=== PATIENT | male | born 1940 | race Asian ===

== ENCOUNTER 2023-04-09 01:03 | Inpatient (IN) | payer MEDICARE ==
[~2023-04-09] VITALS: Ht 165.1 cm; Wt 59.9 kg
[2023-04-09] MEDS ORDERED: ONDANSETRON HCL/PF 4 MG/2 ML VIAL ONE (01:25)
[2023-04-09] MEDS ORDERED: IV NS 0.9% 500 ML BAG IV ONE (01:30)
[2023-04-09] MEDS ORDERED: ONDANSETRON HCL/PF 4 MG/2 ML VIAL IVP ONE (01:30)
[2023-04-09 01:46] LABS: BASOPHILS % (AUTO) 0.3 % (0.0-2.0); EOSINOPHILS % (AUTO) 0.6 % (0.0-6.0); HEMATOCRIT 34 % (39-51); HEMOGLOBIN 11.9 g/dL (13.5-17.5); LYMPHOCYTES # (AUTO) 0.5 K/uL (0.8-4.8); LYMPHOCYTES % (AUTO) 7.7 % (20.0-44.0); MEAN CORPUSCULAR HEMOGLOBIN 30 PG (26.0-33.0); MEAN CORPUSCULAR HGB CONC 35 g/dl (31.0-36.0); MEAN CORPUSCULAR VOLUME 87 fL (80-96); MONOCYTES # (AUTO) 0.2 K/uL (0.1-1.30); MONOCYTES % (AUTO) 3.6 % (2.0-12.0); NEUTROPHILS # (AUTO) 5.7 K/uL (1.8-8.9); NEUTROPHILS % (AUTO) 87.8 % (43.0-81.0); PLATELET COUNT (AUTO) 211 K/uL (150-450); RED BLOOD CELL COUNT(AUTO) 3.97 MIL/uL (4.5-6.0); RED CELL DISTRIBUTION WIDTH 12.8 % (11.5-15.0); WHITE BLOOD COUNT (AUTO) 6.5 K/uL (4.3-11.0)
[2023-04-09 01:54] LABS: ALANINE AMINOTRANSFERASE 33 U/L (12-78); ALBUMIN 3.5 g/dL (3.4-5.0); ALKALINE PHOSPHATASE 107 U/L (46-116); ASPARTATE AMINOTRANSFERASE 31 U/L (15-37); BILIRUBIN,DIRECT 0.2 mg/dL (0.0-0.2); BILIRUBIN,TOTAL 0.8 mg/dL (0.2-1.0); CALCIUM, SERUM 9.1 mg/dL (8.5-10.1); CARBON DIOXIDE 23 mmol/L (21-32); CHLORIDE 82 mmol/L (98-107); CREATININE 0.9 mg/dL (0.6-1.3); GLUCOSE 177 mg/dL (74-106); LIPASE 31 U/L (16-77); POTASSIUM 3.8 mmol/L (3.5-5.1); TOTAL PROTEIN, SERUM 6.9 g/dL (6.4-8.2); UREA NITROGEN, BLOOD 16 mg/dL (7-18)
[2023-04-09 02:05] LABS: SODIUM SERUM 117 mmol/L (136-145)
[2023-04-09 04:45] LABS: APPEARANCE,URINE CLEAR (CLEAR); BILIRUBIN,URINE NEGATIVE (NEGATIVE); BLOOD, URINE TRACE-INTA Ery/uL (NEGATIVE); COLOR,URINE YELLOW (YELLOW); KETONES,URINE 1+ mg/dL (NEGATIVE); LEUKOCYTE ESTERASE ,URINE NEGATIVE (NEGATIVE); NITRITE, URINE NEGATIVE (NEGATIVE); PH,URINE 7.5 (5.0-8.0); PROTEIN,URINE NEGATIVE (NEGATIVE); UGLUCOSE NEGATIVE (NEGATIVE); UROBILINOGEN,URINE 0.2 EU/dL (0.2)
[2023-04-09] MEDS ORDERED: MAGNESIUM HYDROXIDE 30 ML UDC PO PRN (05:30)
[2023-04-09] MEDS ORDERED: MAG HYDROX/AL HYDROX/SIMETH 30 ML UDC PO PRN (05:30)
[2023-04-09] MEDS ORDERED: Z GUARD REMEDY 4 OZ OINT TP PRN (05:30)
[2023-04-09] MEDS ORDERED: ONDANSETRON HCL/PF 4 MG/2 ML VIAL IVP PRN (05:30)
[2023-04-09] MEDS ORDERED: ZOLPIDEM TARTRATE 5 MG TABLET PO PRN (05:30)
[2023-04-09] MEDS ORDERED: ACETAMINOPHEN 325 MG TABLET PO PRN (05:30)
[2023-04-09 05:54] LABS: ADD URINE CULTURE NO; BACTERIA,URINE None seen /HPF (None Seen); RBC,URINE 0-2 /HPF (0-2); SQUAMOUS EPITHELIAL CELL,UR None Seen /HPF (None Seen); WBC,URINE NONE SEEN /HPF (0-3)
[2023-04-09 07:40] LABS: CREATININE 0.9 mg/dL (0.6-1.3); POTASSIUM 3.9 mmol/L (3.5-5.1)
[2023-04-09 08:00] VITALS: BP 123/64; TEMP 98.4; O2SAT 99
[2023-04-09] MEDS ORDERED: LEVO50TA PO (08:11)
[2023-04-09] MEDS ORDERED: LOSA100T31 PO (08:11)
[2023-04-09] MEDS ORDERED: HYDR12.55 PO (08:11)
[2023-04-09] MEDS ORDERED: EZET10TA16 PO (08:11)
[2023-04-09] MEDS: IV NS 0.9% 1,000 ML IV PRN ×2 (09:41→18:07)
[2023-04-09 12:00] VITALS: BP 137/69; TEMP 98.8; O2SAT 99
[2023-04-09 16:00] VITALS: BP 128/69; TEMP 98.9; O2SAT 99
[2023-04-09 20:00] VITALS: BP 134/76; TEMP 98.4; O2SAT 95
[2023-04-10] VITALS (8 sets, daily range): BP systolic 128–142; BP diastolic 68–80; TEMP 98.2–98.8; O2SAT 95–100
[2023-04-10] MEDS: IV NS 0.9% 1,000 ML IV PRN (05:43)
[2023-04-10 07:00] LABS: BASOPHILS % (AUTO) 0.4 % (0.0-2.0); EOSINOPHILS # (AUTO) 0.2 K/uL (0.0-0.7); EOSINOPHILS % (AUTO) 3.5 % (0.0-6.0); HEMATOCRIT 37 % (39-51); HEMOGLOBIN 12.4 g/dL (13.5-17.5); LYMPHOCYTES # (AUTO) 0.8 K/uL (0.8-4.8); LYMPHOCYTES % (AUTO) 15.6 % (20.0-44.0); MEAN CORPUSCULAR HEMOGLOBIN 30 PG (26.0-33.0); MEAN CORPUSCULAR HGB CONC 34 g/dl (31.0-36.0); MEAN CORPUSCULAR VOLUME 90 fL (80-96); MONOCYTES # (AUTO) 0.6 K/uL (0.1-1.30); MONOCYTES % (AUTO) 11.2 % (2.0-12.0); NEUTROPHILS # (AUTO) 3.5 K/uL (1.8-8.9); NEUTROPHILS % (AUTO) 69.3 % (43.0-81.0); PLATELET COUNT (AUTO) 198 K/uL (150-450); RED BLOOD CELL COUNT(AUTO) 4.13 MIL/uL (4.5-6.0); RED CELL DISTRIBUTION WIDTH 13.3 % (11.5-15.0); WHITE BLOOD COUNT (AUTO) 5.1 K/uL (4.3-11.0)
[2023-04-10 07:24] LABS: CALCIUM, SERUM 8.7 mg/dL (8.5-10.1); CARBON DIOXIDE 25 mmol/L (21-32); CHLORIDE 98 mmol/L (98-107); GLUCOSE 93 mg/dL (74-106); MAGNESIUM 2.7 mg/dL (1.8-2.4); POTASSIUM 3.9 mmol/L (3.5-5.1); SODIUM SERUM 131 mmol/L (136-145); UREA NITROGEN, BLOOD 13 mg/dL (7-18)
[2023-04-10] MEDS ORDERED: IV D5W 1,000 ML IV PRN (09:00)
[2023-04-10 13:41] LABS: CALCIUM, SERUM 8.8 mg/dL (8.5-10.1); CARBON DIOXIDE 27 mmol/L (21-32); CHLORIDE 98 mmol/L (98-107); CREATININE 1.1 mg/dL (0.6-1.3); GLUCOSE 102 mg/dL (74-106); POTASSIUM 3.9 mmol/L (3.5-5.1); SODIUM SERUM 131 mmol/L (136-145); UREA NITROGEN, BLOOD 16 mg/dL (7-18)
[2023-04-10] MEDS ORDERED: AZITHROMYCIN 250 MG TABLET PO ONE (16:00)
[2023-04-10] MEDS ORDERED: MENTHOL/CETYLPYRD (CEPACOL) 1 LOZ LOZENGE PO PRN (16:00)
[2023-04-10] MEDS ORDERED: dexaMETHasone SOD PHOSPHATE 10 MG/ML VIAL IV ONE (16:00)
[2023-04-10] MEDS: ALBUTEROL FS 2.5 MG/3 ML VIAL.NEB NEB SCH (20:28)
[2023-04-11] VITALS (7 sets, daily range): BP systolic 142–143; BP diastolic 68–80; TEMP 97.8–98; O2SAT 95–100
[2023-04-11] MEDS: ALBUTEROL FS 2.5 MG/3 ML VIAL.NEB NEB SCH ×4 (00:07→10:35)
[2023-04-11 07:36] LABS: CALCIUM, SERUM 8.6 mg/dL (8.5-10.1); CREATININE 1.1 mg/dL (0.6-1.3); MAGNESIUM 2.3 mg/dL (1.8-2.4); PHOSPHORUS 3.4 mg/dL (2.5-4.9); POTASSIUM 3.7 mmol/L (3.5-5.1)
[2023-04-11 07:42] LABS: THYROID STIMULATING HORMONE 0.939 uIU/mL (0.358-3.74); URIC ACID 5.9 mg/dL (2.6-7.2)
[2023-04-11] MEDS ORDERED: LOSARTAN POTASSIUM 50 MG TABLET PO SCH (09:00)
[2023-04-11] MEDS ORDERED: AZIT1PAC9 PO (14:06)
[2023-04-11] MEDS ORDERED: ALBU8.5H8 INH (14:06)
[2023-04-11] MEDS ORDERED: AZITHROMYCIN 250 MG TABLET PO SCH (16:00)
== END 2023-04-11 14:55 | disposition home or self-care (01) | DRG 641 ==
LOC: ER 01:18 → TELE1 08:13 → MEDSG1 09:17
PROVIDERS: ADMIT Nurse Practitioner Acute Care; ATTEND Nurse Practitioner Acute Care
DX: E87.1 Hypo-osmolality and hyponatremia (principal); J20.9 Acute bronchitis, unspecified; I10 Essential (primary) hypertension; E78.5 Hyperlipidemia, unspecified; E03.9 Hypothyroidism, unspecified; T50.2X5A Adverse effect of carbonic-anhydrase inhibitors, benzothiadiazides and other diuretics, initial encounter; Y92.9 Unspecified place or not applicable; D64.9 Anemia, unspecified; E83.41 Hypermagnesemia
CPT/HCPCS: 36415; 80048-TC; 80076-TC; 81001; 83690-TC; 83735-TC; 84100-TC; 84300-TC; 84443-TC; 84550-TC; 85025-TC; 94799-TC; A4223; G0378; J1100; J2405; J3490; J7030; J7040; J7070